=== PATIENT | male | born 1980 | race African-American/Black ===

== ENCOUNTER 2017-01-30 16:43 | Emergency (ER) | payer MEDICARE ==
[~2017-01-30] VITALS: Ht 177.8 cm; Wt 59.9 kg
[2017-01-30 17:00] VITALS: BP 146/75
[2017-01-30] MEDS ORDERED: TOBR5DRO2 OD (17:18)
--- NOTE | 2017-01-30 17:18 | PHYS DOC ---
Past Medical History Past Medical History: No Pertinent History Past Surgical History: No Surgical History Alcohol Use: Occasionally Drug Use: None Adult General Chief Complaint Chief Complaint: EYE PROBLEMS HPI HPI Patient is a 37 year old male presents emergency department stating that he woke up this morning with his right eye matted closed. He states that he is warm washcloths to decrease the mattering. He continues to state that he has had an upper respiratory congestion. His also had a grandson that has pink eye. He denies any fever, chills or any nausea or vomiting. He denies any use of contact lenses. Review of Systems Review of Systems Constitutional: Denies fever or chills [] Eyes: Denies change in visual acuity, or eye pain. C/o redness and drainage to the right eye HENT: Denies nasal congestion or sore throat [] Respiratory: Denies cough or shortness of breath [] Cardiovascular: No additional information not addressed in HPI [] GI: Denies abdominal pain, nausea, vomiting, bloody stools or diarrhea [] : Denies dysuria or hematuria [] Musculoskeletal: Denies back pain or joint pain [] Integument: Denies rash or skin lesions [] Neurologic: Denies headache, focal weakness or sensory changes [] Allergies Allergies Allergies Coded Allergies Type Severity Reaction Last Updated Verified No Known Drug Allergies 01/30/17 No Physical Exam Physical Exam Constitutional: Well developed, well nourished, no acute distress, non-toxic appearance. [] HENT: Normocephalic, atraumatic, bilateral external ears normal, oropharynx moist, no oral exudates, nose normal. Lateral tympanic membranes appear to be normal. Throat with no erythematous no exudate no drainage noted. Eyes: PERRLA, EOMI, conjunctiva red with clear drainage noted at this time. Neck: Normal range of motion, no tenderness, supple, no stridor. [] Cardiovascular:Heart rate regular rhythm, no murmur [] Lungs & Thorax: Bilateral breath sounds clear to auscultation [] Skin: Warm, dry, no erythema, no rash. [] Back: No tenderness Extremities: No tenderness, no cyanosis, no clubbing, ROM intact, no edema. [] Neurologic: Alert and oriented X 3, normal motor function, normal sensory function, no focal deficits noted. [] Psychologic: Affect normal, judgement normal, mood normal. [] Current Patient Data Vital Signs Vital Signs Date Time Temp Pulse Resp B/P Pulse Ox O2 Delivery O2 Flow Rate FiO2 01/30/17 17:00 97.6 82 16 96 Room Air 97.6 EKG EKG [] Radiology/Procedures Radiology/Procedures [] Course & Med Decision Making Course & Med Decision Making Pertinent Labs and Imaging studies reviewed. (See chart for details) Patient will be discharged home in stable condition. He'll be provided with eyedrops for conjunctivitis. Recommended good handwashing. Tylenol or ibuprofen for pain and discomfort. Signs and symptoms to return back to emergency department been provided. Patient agrees with discharge instructions treatment regimens and follow-up recommendations. [] Dragon Disclaimer Dragon Disclaimer This electronic medical record was generated, in whole or in part, using a voice recognition dictation system. Departure Departure Impression: Primary Impression: Conjunctivitis Disposition: HOME, SELF-CARE Condition: STABLE Referrals: NO PCP (PCP) Patient Instructions: Bacterial Conjunctivitis, [id number] Additional Instructions: Activity tolerated. Medication as prescribed. Warm moist packs to the right eye. Warm moist packs may also help with relieving the matter redness around the eye. Follow-up to primary care physician next 5-7 days. Return back to emergency prior signs symptoms of become worse. Scripts Tobramycin/Dexamethasone (Tobradex Eye Drops)5 Ml Drops.susp1 Drop OD QID #[address] drops in the right eye for the next 7 days Prov:CRISTIAN JAEGER APRN 01/30/17 CRISTIAN JAEGRE APRN January 30, 2017 17:18
== END 2017-01-30 17:29 | disposition home or self-care (01) ==
LOC: ER 16:43
DX: H10.9 Unspecified conjunctivitis (principal)
CPT/HCPCS: 99283